=== PATIENT | male | born 1990 | race Caucasian/White ===

== ENCOUNTER 2017-05-25 15:35 | Emergency (ER) | payer SELFPAY ==
--- NOTE | 2017-05-25 16:03 | EDPHY ---
H & P Time Seen by Provider: 05/25/17 16:01 HPI/ROS: Chief complaint. Foot laceration HPI. 26-year-old male presents emergency department with laceration on the bottom of his left foot. It occurred yesterday while he was walking on the grass. He thinks he cut it on a broken glass wine bottle. Does not have any sense of retained foreign body. It does hurt to walk gone. No treatment so far. No other injuries ROS Constitutional. no fever/chills, no weakness Eyes. no problems with vision ENT. no sore throat, no nasal drainage Cardiovascular. no chest pain Respiratory. no shortness of breath, no cough Abdominal. no abdominal pain, no nausea/vomiting, no diarrhea . no problems urinating MS. no calf pain/swelling, no neck/back pain, no joint pain Skin. Laceration bottom of left foot Lymph. no swollen glands Neuro. no headache, no dizziness, no difficulty walking or with speech Past Medical/Surgical History: Healthy Social History: Single, daily smoker, no alcohol Smoking Status: Current every day smoker Physical Exam: General Appearance: Alert well-developed male mild distress vital signs stable Eyes: Pupils equal and round no pallor or injection. ENT, Mouth: Mucous membranes are moist. Respiratory: There are no retractions, lungs are clear to auscultation. Cardiovascular: Regular rate and rhythm. Gastrointestinal: Abdomen is soft and nontender, no masses, bowel sounds normal. Neurological: Awake and alert, sensory and motor exams grossly normal. Skin: 3 cm laceration on the foot below the great toe. It is contaminated with dirt. No evidence with palpation or inspection for retained foreign body. Distal motor vascular sensitivity is intact Musculoskeletal: Neck is supple nontender. Extremities symmetrical, full range of motion. Psychiatric: Patient is oriented X 3, there is no agitation. Constitutional: Initial Vital Signs Temperature (C) 36.4 C 05/25/17 15:41 Heart Rate 104 H 05/25/17 15:41 Respiratory Rate 18 05/25/17 15:41 Blood Pressure 162/100 H 05/25/17 15:41 O2 Sat (%) 95 05/25/17 15:41 O2 Delivery Mode Room Air Allergies/Adverse Reactions: bee stings Allergy (Uncoded 05/25/17 15:44) Home Medications: Medication Instructions Recorded NK [No Known Home Meds] 05/25/17 Medical Decision Making Procedures: 1% lidocaine with epinephrine is infiltrated into the laceration. Copious cleaning is performed. Reinspection shows no evidence for foreign body. It is then Steri-Stripped secondary due to its age of 24 hours ED Course/Re-evaluation: Patient and I discussed treatment plan including that this is high risk wound for infection. We discussed criteria for return and importance of follow-up and further evaluation. He expresses understanding and agreement Differential Diagnosis: 24 hour hold laceration to the bottom of the left foot that is contaminated with dirt. We will not so this close due to infection potential of the wound. I considered retained foreign body as well - Data Points Medications Given: Discontinued Medications Olanzapine (Zyprexa Zydis) 10 mg PO EDNOW ONE Stop: 05/25/17 16:09 Last Admin: 05/25/17 16:11 Dose: Not Given Departure - Departure Disposition: Home, Routine, Self-Care Clinical Impression: Laceration of left foot Qualifiers: Encounter type: initial encounter Qualified Code(s): S91.312A - Laceration without foreign body, left foot, initial encounter Condition: Good Instructions: Laceration (ED) Additional Instructions: Keep the foot clean and dry. Wear socks and shoes for the next 10 days. This wound has increased possibility of infection. Return for signs of infection. Leave the Steri-Strips on for 10 days Referrals: NONE *PRIMARY CARE P,. [Primary Care Provider] - As per Instructions [facility] [Outside] - As per Instructions
[2017-05-25] MEDS ORDERED: OLANZapine DISINTEGR 10 MG TAB PO ONE (16:08)
[2017-05-25 16:50] VITALS: BP 162/89; PULSE 95; RESP 15; TEMP 98.8; O2SAT 97
== END 2017-05-25 16:51 | disposition home or self-care (01) ==
DX: S91.312A Laceration without foreign body, left foot, initial encounter (principal); F17.200 Nicotine dependence, unspecified, uncomplicated; W25.XXXA Contact with sharp glass, initial encounter; Y99.8 Other external cause status; Y93.01 Activity, walking, marching and hiking

== ENCOUNTER 2017-06-20 12:45 | Emergency (ER) | payer MEDICAID ==
--- NOTE | 2017-06-20 12:51 | EDPHY ---
H & P Time Seen by Provider: 06/20/17 12:48 HPI/ROS: CHIEF COMPLAINT: Requesting assistance from alcohol and heroin detoxification HISTORY OF PRESENT ILLNESS: 26-year-old male arrives by ambulance after he called 911 stating that he has been using alcohol and heroin frequently, use last night, would like assistance with long-term sobriety. Denies acute complaints of pain or trauma. Denies suicidal homicidal ideation. Denies seizure. Denies hallucination. Denies self-injury. Denies trauma. Denies: Chest pain, dyspnea, headache, fever, chills PRIMARY CARE PROVIDER: none REVIEW OF SYSTEMS: A ten point review of systems was performed and is negative with the exception of the items mentioned in the HPI PAST MEDICAL & SURGICAL HISTORY: No pertinent medical or surgical history SOCIAL HISTORY: Alcohol and heroin use PHYSICAL EXAM (Prior to examination, patient consented to physical exam, hands were washed and my usual and customary physical exam procedures followed) 1) GENERAL: Well-developed, well-nourished, alert and oriented. Appears to be in no acute distress. Smiling, pleasant, observed ambulating stable steady gait , answering questions appropriately. 2) HEAD: Normocephalic, atraumatic 3) HEENT: Pupils equal, round, reactive to light bilaterally. Sclera anicteric. 4) NECK: Full range of motion, no meningeal signs. 5) LUNGS: Clear auscultation bilaterally, no wheezes, no rhonchi, no retractions. 6) HEART: Regular rate and rhythm, no murmur, no heave, no gallop. 7) ABDOMEN: No guarding, no rebound, no focal tenderness, 8) MUSCULOSKELETAL: Moving all extremities, no focal areas of tenderness, no obvious trauma. No peripheral edema or discoloration. 9) BACK: No CVA tenderness. 10) SKIN: No rash, no petechiae. [11) Psychiatric: Patient is oriented X 3, there is no agitation. DIFFERENTIAL DIAGNOSIS: [ in no particular order including but limited to acute alcohol withdrawal, acute opiate withdrawal, polysubstance abuse - Medical/Surgical History Other PMH: neg - Social History Smoking Status: Current every day smoker Allergies/Adverse Reactions: bee stings Allergy (Uncoded 05/25/17 15:44) Home Medications: Medication Instructions Recorded NK [No Known Home Meds] 05/25/17 Medical Decision Making ED Course/Re-evaluation: 12:54 p.m.: This patient is requesting assistance with detoxification from alcohol and heroin. Denies suicidal or homicidal ideation. He has been given oral dose of Ativan in the ER and would [facility]. No history of chronic benzodiazepine use. Departure - Departure Disposition: Home, Routine, Self-Care Clinical Impression: Heroin withdrawal Alcohol withdrawal Qualifiers: Complication of substance-induced condition: uncomplicated Qualified Code(s): F10.230 - Alcohol dependence with withdrawal, uncomplicated Condition: Good Instructions: Alcohol Withdrawal (ED), Chlordiazepoxide (By mouth) Referrals: [facility] [Outside] - As per Instructions
[2017-06-20] MEDS ORDERED: CHLORDIAZEPOXIDE 25MG PREPK#6 BTL TAKEHOME ONE (12:54)
[2017-06-20] MEDS ORDERED: LORazepam 1 MG TAB PO ONE (12:55)
[2017-06-20 13:26] VITALS: RESP 16; O2SAT 97
[2017-06-20 13:34] VITALS: BP 118/70; PULSE 98; TEMP 98.2
== END 2017-06-20 13:53 | disposition home or self-care (01) ==
LOC: EDUNIT#
DX: F11.23 Opioid dependence with withdrawal (principal); F10.230 Alcohol dependence with withdrawal, uncomplicated; F17.200 Nicotine dependence, unspecified, uncomplicated